=== PATIENT | female | born 1970 | race African-American/Black ===

== ENCOUNTER 2021-04-03 11:02 | Inpatient (IN) | payer MEDICAID, SELFPAY ==
[~2021-04-03] VITALS: Ht 170.2 cm; Wt 81.6 kg
[2021-04-03 11:02] VITALS: BP_SYST 145
[~2021-04-03 11:02] MED LIST: GLU850 PO; GLYB5TAB7 PO; LINA5TAB2 PO; LISI20TA30 PO; NEU300 PO
[2021-04-03] MEDS ORDERED: IOHEXOL 350 mgI/mL, 150 ML INFUS..BTL IV ONE (11:21)
[2021-04-03 11:42] LABS: BASOPHILS % (AUTO) 0.7 % (0.0-2.0); EOSINOPHILS % (AUTO) 0.4 % (0.0-4.0); HEMOGLOBIN 16.8 g/dL (12.0-16.0); LYMPHOCYTES # (AUTO) 1.3 K/uL (1.0-5.5); LYMPHOCYTES % (AUTO) 43.8 % (20.5-51.5); MEAN CORPUSCULAR HEMOGLOBIN 23 pg (27-31); MEAN CORPUSCULAR HGB CONC 34 % (32-36); MEAN CORPUSCULAR VOLUME 70 fL (79.0-98.0); MONOCYTES # (AUTO) 0.3 K/uL (0.0-1.0); MONOCYTES % (AUTO) 10.9 % (1.7-9.3); NEUTROPHILS # (AUTO) 1.3 K/uL (1.8-7.7); NEUTROPHILS % (AUTO) 44.2 % (40.0-70.0); PLATELET COUNT (AUTO) 181 K/uL (130-430); RED BLOOD CELL COUNT(AUTO) 7.17 MIL/uL (4.2-6.2); RED CELL DISTRIBUTION WIDTH 16.9 % (9.0-15.0)
[2021-04-03 11:44] LABS: ANION GAP 6 (5-15); CALCIUM 8.3 mg/dL (8.4-11.0); CHLORIDE 100 mmol/L (98-107); CREATININE 1.24 mg/dL (0.55-1.30); GLUCOSE 225 mg/dL (70-99); SODIUM SERUM 142 mmol/L (136-145); UREA NITROGEN, BLOOD 4 mg/dL (8-21)
[2021-04-03 11:47] LABS: GFR AFRICAN AMERICAN 59 mL/min (>90)
[2021-04-03 11:49] LABS: ALANINE AMINOTRANSFERASE 39 U/L (12-78); ALBUMIN 1.6 g/dL (3.4-4.8); ASPARTATE AMINOTRANSFERASE 57 U/L (10-37); LIPASE 208 U/L (73-393); TOTAL BILIRUBIN 0.4 mg/dL (0.0-1.0)
[2021-04-03 11:51] LABS: ALCOHOL, BLOOD < 3 mg/dL (<10); POTASSIUM 2.2 mmol/L (3.5-5.1)
[2021-04-03] MEDS ORDERED: NACL 0.9% 1,000 ML IV ONE (12:15)
[2021-04-03] MEDS ORDERED: POTASSIUM CHLORIDE 20 MEQ TAB.PRT.SR PO ONE (12:15)
[2021-04-03] MEDS ORDERED: ASPIRIN 325 MG TABLET PO ONE (13:15)
[2021-04-03] MEDS ORDERED: amLODIPine BESYLATE 10 MG TABLET PO ONE (13:30)
[2021-04-03 15:07] LABS: BILIRUBIN,URINE NEGATIVE (NEGATIVE); BLOOD, URINE 1+ (NEGATIVE); CLARITY/URINE CLEAR (CLEAR); COLOR,URINE YELLOW (YELLOW); GLUCOSE,URINE TRACE (NEGATIVE); KETONES,URINE NEGATIVE (NEGATIVE); LEUKOCYTE ESTERASE ,URINE NEGATIVE (NEGATIVE); NITRITE, URINE NEGATIVE (NEGATIVE); PH,URINE 7.5 (5.0-8.0); PROTEIN URINE 2+ (NEGATIVE); UROBILINOGEN,URINE 0.2 (0.2-1.0)
[2021-04-03 15:22] LABS: BARBITURATE, URINE NEGATIVE (NEG <=200); BENZODIAZEPINE, URINE NEGATIVE (NEG <=150); CANNABINOID, URINE NEGATIVE (NEG <=50); COCAINE, URINE NEGATIVE (NEG <=150); METHAMPHETAMINES SCREEN,URINE POSITIVE (NEG <=500); OPIATE, URINE NEGATIVE (NEG <=100); PHENCYCLIDINE SCREEN,URINE NEGATIVE (NEG <=25); UR TRICYCLIC ANTIDEPRESSANTS NEGATIVE (NEG <=300); URINE AMPHETAMINE POSITIVE (NEG <=500); URINE METHADONE NEGATIVE (NEG <=200); URINE OXYCODONE SCREEN NEGATIVE (NEG <=100); URINE PROPOXYPHENE SCREEN NEGATIVE (NEG <=300)
[2021-04-03 15:24] LABS: BACTERIA,URINE FEW /HPF (None Seen); MUCUS,URINE None Seen /LPF (None Seen); RBC,URINE 0-3 /HPF (0-3); WBC,URINE 0-3 /HPF (0-3)
[2021-04-04] MEDS ORDERED: D5W 1,000 ML IV PRN
[2021-04-04] MEDS ORDERED: DEXTROSE 50% JECT 50 ML DISP.SYRIN IVP PRN
[2021-04-04] MEDS ORDERED: GLUCOSE (DEXTROSE) ORAL GEL -Adults PO PRN
[2021-04-04] MEDS ORDERED: INSULIN REGULAR, HUMAN 100 UNITS/ML, 10 ML VIAL (humuLIN R) SUBCUT PRN
[2021-04-04] MEDS ORDERED: INSULIN REGULAR, HUMAN 10 UNITS/0.1 ML INJ ONE (01:17)
[2021-04-04] MEDS ORDERED: NALOXONE HCL 0.4 MG/ML AMP (NARCAN) IVP PRN (06:15)
[2021-04-04] MEDS ORDERED: MORPHINE 2 MG/ML INJ. SYRINGE IVP PRN ×2 (06:15)
[2021-04-04] MEDS ORDERED: ONDANSETRON HCL 4 MG/2 ML VIAL IVP PRN (06:15)
[2021-04-04] MEDS ORDERED: ACETAMINOPHEN 500 MG TABLET PO ONE (06:15)
[2021-04-04] MEDS ORDERED: MORPHINE 4 MG INJ. 4 MG/ML VIAL ONE (06:28)
[2021-04-04] MEDS ORDERED: ONDANSETRON HCL 4 MG/2 ML VIAL ONE (06:29)
[2021-04-04] MEDS: NORMAL SALINE 5 ML DISP.SYRIN IVF SCH ×3 (08:05→22:13)
[2021-04-04 08:59] LABS: BASOPHILS % (AUTO) 0.6 % (0.0-2.0); EOSINOPHILS % (AUTO) 0.6 % (0.0-4.0); HEMATOCRIT 42.7 % (36-48); LYMPHOCYTES # (AUTO) 1.1 K/uL (1.0-5.5); LYMPHOCYTES % (AUTO) 41.2 % (20.5-51.5); MEAN CORPUSCULAR HEMOGLOBIN 23 pg (27-31); MEAN CORPUSCULAR HGB CONC 33 % (32-36); MEAN CORPUSCULAR VOLUME 71 fL (79.0-98.0); MONOCYTES # (AUTO) 0.3 K/uL (0.0-1.0); MONOCYTES % (AUTO) 13.1 % (1.7-9.3); NEUTROPHILS # (AUTO) 1.2 K/uL (1.8-7.7); NEUTROPHILS % (AUTO) 44.5 % (40.0-70.0); PLATELET COUNT (AUTO) 147 K/uL (130-430); RED BLOOD CELL COUNT(AUTO) 6.06 MIL/uL (4.2-6.2); RED CELL DISTRIBUTION WIDTH 16.2 % (9.0-15.0); WHITE BLOOD COUNT (AUTO) 2.6 K/uL (4.8-10.8)
[2021-04-04 09:09] LABS: ALBUMIN 1.1 g/dL (3.4-4.8); CALCIUM 7.2 mg/dL (8.4-11.0); CREATININE 1.1 mg/dL (0.55-1.30); THYROID STIMULATING HORMONE 1.62 uIu/mL (0.36-3.74); TOTAL BILIRUBIN 0.2 mg/dL (0.0-1.0)
[2021-04-04 09:30] LABS: POTASSIUM 2.3 mmol/L (3.5-5.1)
[2021-04-04] MEDS ORDERED: POTASSIUM CHLORIDE 20 MEQ TAB.PRT.SR PO ONE (09:30)
[2021-04-04] MEDS ORDERED: POTASSIUM CHLORIDE 20 MEQ TAB.PRT.SR PO SCH (09:30)
[2021-04-04] MEDS: ASPIRIN 81 MG TABLET(ECOTRIN) PO SCH (09:53)
[2021-04-04] MEDS ORDERED: MORPHINE 2 MG/ML INJ. SYRINGE ONE (23:01)
[2021-04-04] MEDS: POTASSIUM CHLORIDE 20 MEQ TAB.PRT.SR PO SCH (23:23)
[2021-04-05] MEDS ORDERED: hydrALAZINE HCL 20 MG/ML VIAL IVP PRN (01:00)
[2021-04-05] MEDS ORDERED: hydrALAZINE HCL 20 MG/ML VIAL ONE (01:17)
[2021-04-05] MEDS: NORMAL SALINE 5 ML DISP.SYRIN IVF SCH ×2 (06:03→13:14)
[2021-04-05 08:23] LABS: BASOPHILS % (AUTO) 0.6 % (0.0-2.0); EOSINOPHILS % (AUTO) 0.3 % (0.0-4.0); HEMATOCRIT 46.9 % (36-48); HEMOGLOBIN 15.3 g/dL (12.0-16.0); LYMPHOCYTES % (AUTO) 30.3 % (20.5-51.5); MEAN CORPUSCULAR HEMOGLOBIN 23 pg (27-31); MEAN CORPUSCULAR HGB CONC 33 % (32-36); MEAN CORPUSCULAR VOLUME 71 fL (79.0-98.0); MONOCYTES # (AUTO) 0.3 K/uL (0.0-1.0); MONOCYTES % (AUTO) 8.8 % (1.7-9.3); NEUTROPHILS # (AUTO) 1.9 K/uL (1.8-7.7); PLATELET COUNT (AUTO) 141 K/uL (130-430); RED BLOOD CELL COUNT(AUTO) 6.62 MIL/uL (4.2-6.2); RED CELL DISTRIBUTION WIDTH 16.2 % (9.0-15.0); WHITE BLOOD COUNT (AUTO) 3.2 K/uL (4.8-10.8)
[2021-04-05 08:48] LABS: ALBUMIN 1.2 g/dL (3.4-4.8); CALCIUM 7.5 mg/dL (8.4-11.0); CREATININE 1.31 mg/dL (0.55-1.30); THYROID STIMULATING HORMONE 2.28 uIu/mL (0.36-3.74); TOTAL BILIRUBIN 0.4 mg/dL (0.0-1.0)
[2021-04-05 08:50] LABS: POTASSIUM 3.6 mmol/L (3.5-5.1)
[2021-04-05] MEDS: POTASSIUM CHLORIDE 20 MEQ TAB.PRT.SR PO SCH (09:00)
[2021-04-05] MEDS: ASPIRIN 81 MG TABLET(ECOTRIN) PO SCH (09:00)
[2021-04-05 17:04] VITALS: BP_SYST 141
== END 2021-04-05 16:30 | disposition home or self-care (01) | DRG 47 ==
LOC: SED 11:02 → STU 15:02
PROVIDERS: ADMIT Internal Medicine; ATTEND Internal Medicine
DX: G45.9 Transient cerebral ischemic attack, unspecified (principal); U07.1 COVID-19; E46 Unspecified protein-calorie malnutrition; E11.9 Type 2 diabetes mellitus without complications; F15.90 Other stimulant use, unspecified, uncomplicated; I10 Essential (primary) hypertension; E87.6 Hypokalemia; E78.00 Pure hypercholesterolemia, unspecified; Z79.899 Other long term (current) drug therapy; Z68.28 Body mass index [BMI] 28.0-28.9, adult; R10.9 Unspecified abdominal pain
CPT/HCPCS: 36415; 70450-TC; 70496; 70498; 76376; 80053; 80307; 81000; 82962; 83690; 83880; 84443; 85025; 85379; 93005; 99291; G0378; G0482; J0360; J1815; J2270; J2405; Q9967